=== PATIENT | male | born 1965 | race Caucasian/White ===

== ENCOUNTER 2017-04-04 15:21 | Emergency (ER) | payer OTHER ==
[2017-04-04] MEDS ORDERED: CLINDAMYCIN 150 MG CAP PO ONE (15:54)
--- NOTE | 2017-04-04 15:55 | Emergency Department Record ---
History of Present Illness - General Chief Complaint: Laceration(s) Stated Complaint: LACERATION ON LT LEG Time Seen by Provider: 04/04/17 15:53 Source: Patient Mode of Arrival: Wheelchair Limitations: No limitations - History of Present Illness Initial Commments: 51 yo male presents to ED following injury to the left lower extremity while using a chainsaw this afternoon. Patient reports injury occurred approximately 20 minutes [employer]. Patient denies other injury, and does not take blood thinner medications. Patient denies lower extremity weakness, numbness, or tingling. Patient's tetanus is not currently UTD. Onset/Timin -: Minutes(s) Extremity Location: Left: Lower leg Place: Home Context: Accidental Associated Symptoms: Pain Treatments Prior to Arrival: Bandage - Jennifer Coma Scale Eye Response: (4) Open spontaneously Motor Response: (6) Obeys commands Verbal Response: (5) Oriented [place] Total: 15 - Related Data Hx Tetanus Toxoid Vaccination: Yes Year of Tetanus Vaccination: 2012 Home Medications Medication Instructions Recorded Confirmed Last Taken Lisinopril/Hydrochlorothiazide 1 each PO DAILY 04/04/17 04/04/17 04/04/17 [Lisinopril-Hctz 20-25 mg Tab] Naproxen [Naprosyn] 500 mg PO Q12HR 04/04/17 04/04/17 Unknown Previous Rx's Medication Instructions Recorded Clindamycin HCl 300 mg PO Q6H #40 capsule 04/04/17 Allergies Allergy/AdvReac Type Severity Reaction Status Date / Time No Known Drug Allergies Allergy Verified 04/04/17 15:42 Travel Screening - Travel/Exposure Within Last 30 Days Have you traveled within the last 30 days?: No - Travel/Exposure Within Last Year Have you traveled outside the [place] in the last year?: No - Additonal Travel Details Have you been exposed to anyone with a communicable illness?: No - Travel Symptoms Symptom Screening: None Review of Systems Constitutional: Denies: Chills, Fever, Malaise, Night sweats Eyes: Denies: Eye discharge, Eye pain ENT: Denies: Congestion, Ear pain, Epistaxis Respiratory: Denies: Cough, Dyspnea Cardiovascular: Denies: Dyspnea on exertion, Palpitations Endocrine: Denies: Fatigue, Heat or cold intolerance Gastrointestinal: Denies: Abdominal pain, Nausea, Vomiting Genitourinary: Denies: Incontinence, Retention Musculoskeletal: Denies: Arthralgia, Back pain, Gout, Joint swelling Skin: Denies: Bruising, Lesions Neurological: Denies: Abnormal gait, Confusion, Headache, Seizure Psychiatric: Denies: Anxiety Hematological/Lymphatic: Denies: Anemia, Blood Clots Past Medical History - SOCIAL HISTORY Smoking Status: Current every day smoker Alcohol Use: Rare Drug Use: None - RESPIRATORY Hx Respiratory Disorders: No - CARDIOVASCULAR Hx Cardio Disorders: Yes Hx Hypertension: Yes - NEURO Hx Neuro Disorders: No - GI Hx GI Disorders: No - Hx Genitourinary Disorders: No - ENDOCRINE Hx Endocrine Disorders: No - MUSCULOSKELETAL Hx Musculoskeletal Disorders: No - PSYCH Hx Psych Problems: No - HEMATOLOGY/ONCOLOGY Hx Hematology/Oncology Disorders: No Family Medical History Any Significant Family History?: No Physical Exam - General General Appearance: Alert, Oriented x3, Cooperative, No acute distress Limitations: No limitations - Head Head exam: Atraumatic, Normocephalic, Normal inspection Head exam detail: negative: Abrasion, Contusion, Rivera's sign, General tenderness, Hematoma, Laceration - Eye Eye exam: Normal appearance. negative: Conjunctival injection, Periorbital swelling, Periorbital tenderness, Scleral icterus - ENT Ear exam: negative: Auricular hematoma, Auricular trauma Nasal Exam: negative: Active bleeding, Discharge, Dried blood, Foreign body Mouth exam: negative: Drooling, Laceration, Muffled voice, Tongue elevation - Neck Neck exam: Normal inspection. negative: Meningismus, Tenderness - Respiratory Respiratory exam: Normal lung sounds bilaterally. negative: Rales, Respiratory distress, Rhonchi, Stridor - Cardiovascular Cardiovascular Exam: Regular rate, Normal rhythm, Normal heart sounds - GI/Abdominal GI/Abdominal exam: Soft. negative: Rebound, Rigid, Tenderness - Rectal Rectal exam: Deferred - exam: Deferred - Extremities Extremities exam: Tenderness, Other (4.5 cm superficail laceration to the supra- patellar region, 2nd 2.5 cm laceration jist above the first laceration. No evidence for tendon injury on examination, no FBs identified.). negative: Calf tenderness, Pedal edema - Back Back exam: Denies: CVA tenderness (R), CVA tenderness (L) - Neurological Neurological exam: Alert, Normal gait, Oriented X3 - Psychiatric Psychiatric exam: Normal affect, Normal mood - Skin Skin exam: Normal color. negative: Abrasion Type of lesion: negative: abrasion Course Vital Signs 04/04/17 15:22 Temperature 98.1 F Pulse Rate 90 Respiratory 16 Rate Blood Pressure 122/70 Pulse Ox 97 - Reevaluation(s) Reevaluation #1: 04/04/17 16:07 Procedure Note: 4.5 cm laceration was anesthetized with 4.0 mL 1% Lidocaine with epi. Wound was then irrigated under jet irrigation x 1 Liter. Wound revision was required , and the wound was then investigated for any remaining FB's or tendon injury, none found. Wound was closed with 3-0 Prolene sutures #10 placed in interrupted fashion with good cosmesis and hemostasis. Patient was started on Clindamycin for antibiotic prophylaxis as he does not do well with Augmentin or Keflex. 2nd Procedure Note: 2.5 cm was anesthetized with 1.5 mL 1% Lidocaine with epi. Wound was then irrigated with saline and the wound was then investigated for any remaining FB' s or tendon injury, none found. Wound was closed with 4-0 Prolene sutures #4 placed in interrupted fashion with good cosmesis and hemostasis. No complications. Patient was informed to return to ED for any increased pain, redness, or swelling, or drainage from the wound. Patient appears stable for discharge at this time. Disposition Disposition: Discharge Clinical Impression: Laceration of lower extremity Qualifiers: Encounter type: initial encounter Laterality: left Qualified Code(s): S81.812A - Laceration without foreign body, left lower leg, initial encounter Disposition: Home, Self-Care Condition: (2) Stable Instructions: Laceration (ED) Additional Instructions: Return to ED if your symptoms worsen or if you have any concerns. Clindamycin as directed. Follow-up with your family doctor in 5-7 days as directed. Sutures out in 2 weeks Prescriptions: Clindamycin HCl 300 mg PO Q6H #40 capsule Forms: Patient Portal Access Time of Disposition: 15:54
== END 2017-04-04 16:08 | disposition home or self-care (01) ==
LOC: ER 15:21
DX: S81.812A Laceration without foreign body, left lower leg, initial encounter (principal); W31.2XXA Contact with powered woodworking and forming machines, initial encounter; Y92.007 Garden or yard of unspecified non-institutional (private) residence as the place of occurrence of the external cause
CPT/HCPCS: 12032; 99283; 99284